=== PATIENT | female | born 1980 | race Caucasian/White ===

== ENCOUNTER 2016-05-13 06:56 | Inpatient (IN) | payer BC ==
[2016-05-13] VITALS (68 sets, daily range): BP systolic 82–132; BP diastolic 47–78
[~2016-05-13] VITALS: Ht 167.6 cm; Wt 106.6 kg
--- OUTSIDE RECORDS SUMMARY | 2016-05-13 07:04 | XMS REPORT | Continuity of Care Document ---
Author Author [facility] Organization [facility] Address Unknown Phone Unavailable Allergies Active Description Code Type Severity Reaction Onset Reported/Identified Relationship to Patient Clinical Status Yes amoxicillin trihydrate [id number] Drug Allergy Unknown STOMACH UPSET 08/22/2011 Yes naproxen sodium [id number] Drug Allergy Unknown STOMACH UPSET 08/22/2011 Yes potassium clavulanate [id number] Drug Allergy Unknown STOMACH UPSET 08/22/2011 Medications Problems Date Dx Coded Attending Type Code Diagnosis Diagnosed By 08/26/2011 Ot 616.2 02/18/2014 Ot 285.9 02/18/2014 Ot 616.3 02/18/2014 Ot V72.63 02/18/2014 Ot V74.8 02/19/2014 ARIES JARA MD Ot 729.5 03/17/2014 ARIES JARA MD Ot 729.5 03/17/2014 ARIES JARA MD Ot 719.47 06/03/2014 Ot V76.12 06/05/2014 Ot V76.12 10/15/2014 ARIES JARA MD Ot 722.4 10/15/2014 ARIES JARA MD Ot 724.1 06/17/2015 Ot M25.561 07/01/2015 Ot M25.561 PAIN IN RIGHT KNEE 07/09/2015 CAITLIN MARIN DO Ot M25.561 PAIN IN RIGHT KNEE 07/22/2015 CAITLIN MARIN DO Ot M25.561 PAIN IN RIGHT KNEE Procedures Results Encounters ACCT No. Visit Date/Time Discharge Status Pt. Type Provider Facility Loc./Unit Complaint [id number] 10/02/2014 11:31:00 2014 23:59:59 CLS Outpatient ARIES JARA MD [facility] RAD [id number] 02/21/2014 12:47:00 2013 23:59:59 CLS Outpatient ARIES JARA MD [facility] RAD [id number] 02/18/2014 08:54:00 2013 23:59:59 CLS Outpatient ARIES JARA MD [facility] RAD [id number] 07/08/2015 07:34:00 ACT Outpatient CAITLIN MARIN DO [facility] RAD [id number] 06/15/2015 09:53:00 Document Registration [id number] 05/19/2014 14:36:00 Document Registration [id number] 08/26/2011 05:34:00 Document Registration [id number] 08/22/2011 08:56:00 Document Registration
[2016-05-13] MEDS ORDERED: OXYTOCIN/NORMAL SALINE 500 ML IV SCH ×2 (07:19→07:29)
[2016-05-13] MEDS ORDERED: LIDOCAINE/EPI 1%-1:200,000 (XYLOCAINE) 30 ML VIAL INJ ONE (07:30)
--- NOTE | 2016-05-13 07:31 | OB Bishop Score ---
Archer Score 8 PATO EPPERSON MD May 13, 2016 7:31 am
--- NOTE | 2016-05-13 07:34 | History & Physical ---
History and Physical this patient is a 35-year-old G1 white female with an EDC of 2016 admitted now at 39-3/7 weeks gestation for labor induction. Her has been uncomplicated. She had a GBS culture on April 12, 2016 that was negative. Patient denies rupture membranes or bleeding. Patient does feel baby moving. She indicates occasional contractions allergies are none Medications are vitamins and 81 mg aspirin a day and Pepcid and diclegis just when necessary Past medical history, past surgical history, history, social history, and obstetric history are per the antepartum record HEENT exam is normal Neck is supple no lymphadenopathy no thyromegaly Abdomen is gravid soft nontender nondistended Extremities show clubbing cyanosis. There is no Homans sign. There is some pretibial pitting edema that is normal. Pelvic exam is pending Assessment and plan 39 3/7 weeks gestation in patient that has had occasional mild elevations of her blood pressure. Been no specific indication preeclampsia. Patient is admitted now for induction of labor electively. anticipation is for vaginal delivery. 39-3/7 weeks induction of labor Allergies and Home Medications Allergies Coded Allergies: amoxicillin trihydrate (Unverified Allergy, STOMACH UPSET, 08/22/11) naproxen sodium (Unverified Allergy, STOMACH UPSET, 08/22/11) potassium clavulanate (Unverified Allergy, STOMACH UPSET, 08/22/11) PATO EPPERSON MD May 13, 2016 7:34 am
[2016-05-13] MEDS: D5 LR IV SOLUTION 1,000 ML IV SCH ×2 (07:49→14:10)
[2016-05-13 08:18] LABS: BASOPHILS % (AUTO) 0 % (0-10); BILIRUBIN,URINE NEGATIVE (NEGATIVE); EOSINOPHILS # (AUTO) 0.1 10^3/uL (0.0-0.3); EOSINOPHILS % (AUTO) 1 % (0-10); KETONES,URINE NEGATIVE (NEGATIVE); LEUKOCYTE ESTERASE ,URINE 2+ (NEGATIVE); LYMPHOCYTES # (AUTO) 2.4 X 10^3 (1.0-4.0); LYMPHOCYTES % (AUTO) 21 % (12-44); MEAN CORPUSCULAR HEMOGLOBIN 32 PG (25-34); MEAN CORPUSCULAR HGB CONC 35 G/DL (32-36); MEAN CORPUSCULAR VOLUME 91 FL (80-99); MEAN PLATELET VOLUME 11.6 FL (7.4-10.4); MONOCYTES # (AUTO) 0.6 X 10^3 (0.0-1.0); MONOCYTES % (AUTO) 5 % (0-12); NEUTROPHILS # (AUTO) 8.4 X 10^3 (1.8-7.8); NEUTROPHILS % (AUTO) 72 % (42-75); NITRITE,URINE NEGATIVE (NEGATIVE); PH,URINE 6 (5-9); PLATELET COUNT 255 10^3/uL (130-400); PROTEIN,URINE NEGATIVE (NEGATIVE); RED BLOOD COUNT 4.16 10^6/uL (4.35-5.85); RED CELL DISTRIBUTION WIDTH 14.3 % (10.0-14.5); UROBILINOGEN,URINE NORMAL (NORMAL); WHITE BLOOD COUNT 11.6 10^3/uL (4.3-11.0)
[2016-05-13 08:28] LABS: SQUAMOUS EPITHELIAL CELL,UR 25-50 /HPF
[2016-05-13] MEDS ORDERED: LACTATED RINGERS 1,000 ML IV ONE ×3 (11:44→12:59)
[2016-05-13] MEDS ORDERED: fentaNYL INJECTION 100 MCG/2 ML AMP ONE ×3 (12:12→20:58)
[2016-05-13] MEDS ORDERED: SUFENTA 0.6MCG/ML BUPIVA 0.125 100 ML ONE (12:12)
[2016-05-13] MEDS ORDERED: BUPIVACAINE 0.25% 30 ML (SENSORCAINE) VIAL ONE ×2 (12:25→20:58)
[2016-05-13] MEDS ORDERED: fentaNYL INJECTION 100 MCG/2 ML AMP INJ ONE (13:00)
[2016-05-13] MEDS ORDERED: NALOXONE 0.4 MG/ML 1 ML (NARCAN) VIAL IV PRN (13:00)
[2016-05-13] MEDS ORDERED: EPIDURAL (SUFENTA 0.6MCG/ML BUPIVA 0.125%) 100 ML BAG EPI PRN (13:00)
[2016-05-13] MEDS ORDERED: BUPIVACAINE 0.25% 30 ML (SENSORCAINE) VIAL INJ ONE (13:00)
[2016-05-13] MEDS ORDERED: ONDANSETRON 4 MG/2 ML (SDV) Z0FRAN IV PRN (13:00)
[2016-05-13] MEDS ORDERED: CATHETER FLUSH 10 ML SYR IV SCH (14:00)
[2016-05-13] MEDS ORDERED: metroNIDAZOLE 500MG/100ML IVPB 100 ML IV ONE (19:45)
[2016-05-13] MEDS ORDERED: ceFAZolin INJECTION 2,000 MG in NS (IVPB) 50 ML IV ONE (19:45)
[2016-05-13] MEDS ORDERED: D5 LR IV SOLUTION 1,000 ML IV ONE (19:54)
--- NOTE | 2016-05-13 19:55 | Progress Note-Standard ---
Standard Progress Note Progress Notes/Assess & Plan Progress/Assessment & Plan patient complains of some pain on the pubic symphysis. She indicates that she is tired of labor. I was called to see the patient and she has not changed her cervix for the last 3-1/2-4 hours. Currently she is to about 4 to 4.5 cm dilated. Cervix is thinned out probably 6 or 70 percent. The presenting part is the vertex at about a -2 station.there is middle ear no descent all day. The cervix is quite flexible and the presenting part is not applied to the cervix. Of concern is that the urine is turned ron-red over the last hour or so. It is clear that the the presenting part cannot descend into the pelvis due to CPD. I have explained the situation with the patient and the discussed proceeding with with which she agreed. Vital Signs Date Time Temp Pulse Resp B/P Pulse Ox O2 Delivery O2 Flow Rate FiO2 05/13/16 18:50 75 18 120/73 100 Room Air 05/13/16 18:35 75 18 116/72 100 Room Air 05/13/16 18:20 74 18 110/68 100 Room Air 05/13/16 18:05 80 18 109/69 100 Room Air 05/13/16 17:50 76 18 107/63 100 Room Air 05/13/16 17:35 86 18 100 Room Air 05/13/16 17:20 116 18 106/62 100 Room Air 05/13/16 17:05 85 18 111/65 100 Room Air 05/13/16 16:50 78 18 110/63 100 Room Air 05/13/16 16:35 74 18 111/66 100 Room Air 05/13/16 16:20 75 18 111/63 100 Room Air 05/13/16 16:05 84 20 110/62 100 Room Air 05/13/16 15:50 96.7 84 20 106/66 100 Room Air 05/13/16 15:35 84 20 106/66 100 Room Air 05/13/16 15:20 112 20 120/69 95 Room Air 05/13/16 15:05 81 20 118/69 100 Room Air 05/13/16 14:50 72 20 121/70 100 Room Air 05/13/16 14:35 94 20 115/67 100 Room Air 05/13/16 14:20 81 20 117/67 99 Room Air 05/13/16 14:05 110 20 112/63 100 Room Air 05/13/16 13:50 74 18 125/64 99 Room Air 05/13/16 13:45 68 18 121/65 99 Room Air 05/13/16 13:40 102 18 100/62 100 Room Air 05/13/16 13:35 73 18 124/71 100 Room Air 05/13/16 13:30 102 18 100/62 100 Room Air 05/13/16 13:25 98 18 108/63 100 Room Air 05/13/16 13:20 84 18 110/67 100 Room Air 05/13/16 13:15 78 18 126/68 100 Room Air 05/13/16 13:10 80 18 130/70 100 Room Air 05/13/16 13:06 69 132/64 Room Air 05/13/16 13:05 95 18 106/56 100 Room Air 05/13/16 13:03 111 18 82/47 100 Room Air 05/13/16 13:00 112 18 106/59 100 Room Air 05/13/16 12:50 86 18 120/75 100 Room Air 05/13/16 12:45 77 18 124/70 100 Room Air 05/13/16 12:40 75 18 117/64 100 Room Air 05/13/16 12:35 78 18 109/65 100 Room Air 05/13/16 12:30 71 18 115/63 100 Room Air 05/13/16 12:20 70 18 124/66 Room Air 05/13/16 12:05 70 18 117/72 Room Air 05/13/16 11:55 67 18 112/72 Room Air 05/13/16 11:40 96.2 66 18 115/76 Room Air 05/13/16 11:25 64 18 111/73 Room Air 05/13/16 11:10 65 18 128/72 Room Air 05/13/16 10:55 76 18 117/77 Room Air 05/13/16 10:40 66 18 116/71 Room Air 05/13/16 10:25 63 18 119/68 Room Air 05/13/16 10:10 67 18 119/68 Room Air 05/13/16 09:55 64 18 129/69 Room Air 05/13/16 09:40 67 18 108/58 Room Air 05/13/16 09:25 65 18 126/73 Room Air 05/13/16 09:05 60 18 126/73 Room Air 05/13/16 08:50 73 18 108/67 Room Air 05/13/16 08:35 76 18 121/62 Room Air 05/13/16 08:20 76 18 121/62 Room Air 05/13/16 08:05 78 18 119/69 Room Air 05/13/16 07:50 81 18 127/71 Room Air 05/13/16 07:45 95.7 74 18 124/75 Room Air Vital signs are stable. Patient afebrile. The heart rate monitor shows occasional variable D cells.. Contractions have been every 1-3 minutes and then start spacing out as Pitocin has been turned off in preparation for a . Abdomen is benign. Pelvic exam is as noted above. Assessment and plan term with failed progress in labor likely due to CPD possibly also due to OP position that will be assessed with delivery. We are waiting the surgery crew that is involved in an emergent case for a nosebleed. This will allow patient to rest somewhat with the Pitocin turned off before proceeding with the . PATO EPPERSON MD May 13, 2016 7:55 pm
[2016-05-13] MEDS ORDERED: TETANUS,DIPTH,PERTUSS P/F (BOOSTRIX) 0.5 ML VIAL IM ONE (20:00)
[2016-05-13] MEDS ORDERED: PROMETHAZINE INJ 25 MG/ML (PHENERGAN) AMP IM PRN (20:00)
[2016-05-13] MEDS ORDERED: MEASLES,MUMPS,RUBELLA 1 EA INJ SC ONE (20:00)
[2016-05-13] MEDS ORDERED: MEPERIDINE (DEMEROL) INJ 100 MG/ML IM PRN (20:00)
[2016-05-13] MEDS ORDERED: CITRIC ACID/SOB CIT (BICITRA) 30 ML UDC ONE (20:07)
[2016-05-13] MEDS ORDERED: METOCLOPRAMIDE INJ 10 MG/2 ML (REGLAN) ONE (20:07)
[2016-05-13] MEDS ORDERED: ceFAZolin 1,000 MG (ANCEF) VIAL ONE (20:07)
[2016-05-13] MEDS ORDERED: FAMOTIDINE 20MG/2ML IV (PEPCID) ONE (20:08)
[2016-05-13] MEDS ORDERED: LIDOCAINE PF 2% 10 ML (XYLOCAINE) AMP ONE (20:58)
[2016-05-13] MEDS ORDERED: OXYTOCIN/NORMAL SALINE 1,000 ML IV ONE (21:56)
[2016-05-13] MEDS: OXYTOCIN/NORMAL SALINE 500 ML IV SCH ×2 (22:27→23:46)
[2016-05-14 00:53] VITALS: BP 92/53
[2016-05-14] MEDS: KETOROLAC 30 MG/ML VIAL IVP PRN ×2 (01:26→08:44)
[2016-05-14] MEDS: DOCUSATE SODIUM 100 MG (COLACE) CAP PO SCH ×3 (01:29→21:02)
[2016-05-14 04:11] VITALS: BP 98/57
[2016-05-14 08:50] VITALS: BP 108/69
--- NOTE | 2016-05-14 08:55 | Progress Note-Standard ---
Standard Progress Note Progress Notes/Assess & Plan Progress/Assessment & Plan patient complains of some pain on the pubic symphysis. She indicates that she is tired of labor. I was called to see the patient and she has not changed her cervix for the last 3-1/2-4 hours. Currently she is to about 4 to 4.5 cm dilated. Cervix is thinned out probably 6 or 70 percent. The presenting part is the vertex at about a -2 station.there is middle ear no descent all day. The cervix is quite flexible and the presenting part is not applied to the cervix. Of concern is that the urine is turned ron-red over the last hour or so. It is clear that the the presenting part cannot descend into the pelvis due to CPD. I have explained the situation with the patient and the discussed proceeding with with which she agreed. Vital Signs Date Time Temp Pulse Resp B/P Pulse Ox O2 Delivery O2 Flow Rate FiO2 05/13/16 18:50 75 18 120/73 100 Room Air 05/13/16 18:35 75 18 116/72 100 Room Air 05/13/16 18:20 74 18 110/68 100 Room Air 05/13/16 18:05 80 18 109/69 100 Room Air 05/13/16 17:50 76 18 107/63 100 Room Air 05/13/16 17:35 86 18 100 Room Air 05/13/16 17:20 116 18 106/62 100 Room Air 05/13/16 17:05 85 18 111/65 100 Room Air 05/13/16 16:50 78 18 110/63 100 Room Air 05/13/16 16:35 74 18 111/66 100 Room Air 05/13/16 16:20 75 18 111/63 100 Room Air 05/13/16 16:05 84 20 110/62 100 Room Air 05/13/16 15:50 96.7 84 20 106/66 100 Room Air 05/13/16 15:35 84 20 106/66 100 Room Air 05/13/16 15:20 112 20 120/69 95 Room Air 05/13/16 15:05 81 20 118/69 100 Room Air 05/13/16 14:50 72 20 121/70 100 Room Air 05/13/16 14:35 94 20 115/67 100 Room Air 05/13/16 14:20 81 20 117/67 99 Room Air 05/13/16 14:05 110 20 112/63 100 Room Air 05/13/16 13:50 74 18 125/64 99 Room Air 05/13/16 13:45 68 18 121/65 99 Room Air 05/13/16 13:40 102 18 100/62 100 Room Air 05/13/16 13:35 73 18 124/71 100 Room Air 05/13/16 13:30 102 18 100/62 100 Room Air 05/13/16 13:25 98 18 108/63 100 Room Air 05/13/16 13:20 84 18 110/67 100 Room Air 05/13/16 13:15 78 18 126/68 100 Room Air 05/13/16 13:10 80 18 130/70 100 Room Air 05/13/16 13:06 69 132/64 Room Air 05/13/16 13:05 95 18 106/56 100 Room Air 05/13/16 13:03 111 18 82/47 100 Room Air 05/13/16 13:00 112 18 106/59 100 Room Air 05/13/16 12:50 86 18 120/75 100 Room Air 05/13/16 12:45 77 18 124/70 100 Room Air 05/13/16 12:40 75 18 117/64 100 Room Air 05/13/16 12:35 78 18 109/65 100 Room Air 05/13/16 12:30 71 18 115/63 100 Room Air 05/13/16 12:20 70 18 124/66 Room Air 05/13/16 12:05 70 18 117/72 Room Air 05/13/16 11:55 67 18 112/72 Room Air 05/13/16 11:40 96.2 66 18 115/76 Room Air 05/13/16 11:25 64 18 111/73 Room Air 05/13/16 11:10 65 18 128/72 Room Air 05/13/16 10:55 76 18 117/77 Room Air 05/13/16 10:40 66 18 116/71 Room Air 05/13/16 10:25 63 18 119/68 Room Air 05/13/16 10:10 67 18 119/68 Room Air 05/13/16 09:55 64 18 129/69 Room Air 05/13/16 09:40 67 18 108/58 Room Air 05/13/16 09:25 65 18 126/73 Room Air 05/13/16 09:05 60 18 126/73 Room Air 05/13/16 08:50 73 18 108/67 Room Air 05/13/16 08:35 76 18 121/62 Room Air 05/13/16 08:20 76 18 121/62 Room Air 05/13/16 08:05 78 18 119/69 Room Air 05/13/16 07:50 81 18 127/71 Room Air 05/13/16 07:45 95.7 74 18 124/75 Room Air Vital signs are stable. Patient afebrile. The heart rate monitor shows occasional variable D cells.. Contractions have been every 1-3 minutes and then start spacing out as Pitocin has been turned off in preparation for a . Abdomen is benign. Pelvic exam is as noted above. Assessment and plan term with failed progress in labor likely due to CPD possibly also due to OP position that will be assessed with delivery. We are waiting the surgery crew that is involved in an emergent case for a nosebleed. This will allow patient to rest somewhat with the Pitocin turned off before proceeding with the . May 14, 2016 Patient is without complaint. She is ambulating, voiding, tolerating fairly well, denies chest pain, denies shortness breath, denies nausea vomiting, denies headache, has good pain control. Vital Signs Date Time Temp Pulse Resp B/P Pulse Ox O2 Delivery O2 Flow Rate FiO2 05/14/16 04:11 98.0 85 18 98/57 97 Room Air 05/14/16 00:53 98.2 69 18 92/53 100 Room Air 05/13/16 21:10 18 124/78 Room Air 05/13/16 21:08 84 18 117/71 Room Air 05/13/16 21:05 112 18 112/78 Room Air 05/13/16 20:50 96.0 107 18 112/75 Room Air 05/13/16 20:35 78 18 119/67 Room Air 05/13/16 20:20 86 18 118/73 Room Air 05/13/16 20:05 94 18 131/66 Room Air 05/13/16 19:50 89 18 126/68 Room Air 05/13/16 19:35 124 18 113/63 100 Room Air 05/13/16 19:20 83 18 122/68 100 Room Air 05/13/16 19:05 78 18 125/76 100 Room Air 05/13/16 18:50 75 18 120/73 100 Room Air 05/13/16 18:35 75 18 116/72 100 Room Air 05/13/16 18:20 74 18 110/68 100 Room Air 05/13/16 18:05 80 18 109/69 100 Room Air 05/13/16 17:50 76 18 107/63 100 Room Air 05/13/16 17:35 86 18 100 Room Air 05/13/16 17:20 116 18 106/62 100 Room Air 05/13/16 17:05 85 18 111/65 100 Room Air 05/13/16 16:50 78 18 110/63 100 Room Air 05/13/16 16:35 74 18 111/66 100 Room Air 05/13/16 16:20 75 18 111/63 100 Room Air 05/13/16 16:05 84 20 110/62 100 Room Air 05/13/16 15:50 96.7 84 20 106/66 100 Room Air 05/13/16 15:35 84 20 106/66 100 Room Air 05/13/16 15:20 112 20 120/69 95 Room Air 05/13/16 15:05 81 20 118/69 100 Room Air 05/13/16 14:50 72 20 121/70 100 Room Air 05/13/16 14:35 94 20 115/67 100 Room Air 05/13/16 14:20 81 20 117/67 99 Room Air 05/13/16 14:05 110 20 112/63 100 Room Air 05/13/16 13:50 74 18 125/64 99 Room Air 05/13/16 13:45 68 18 121/65 99 Room Air 05/13/16 13:40 102 18 100/62 100 Room Air 05/13/16 13:35 73 18 124/71 100 Room Air 05/13/16 13:30 102 18 100/62 100 Room Air 05/13/16 13:25 98 18 108/63 100 Room Air 05/13/16 13:20 84 18 110/67 100 Room Air 05/13/16 13:15 78 18 126/68 100 Room Air 05/13/16 13:10 80 18 130/70 100 Room Air 05/13/16 13:06 69 132/64 Room Air 05/13/16 13:05 95 18 106/56 100 Room Air 05/13/16 13:03 111 18 82/47 100 Room Air 05/13/16 13:00 112 18 106/59 100 Room Air 05/13/16 12:50 86 18 120/75 100 Room Air 05/13/16 12:45 77 18 124/70 100 Room Air 05/13/16 12:40 75 18 117/64 100 Room Air 05/13/16 12:35 78 18 109/65 100 Room Air 05/13/16 12:30 71 18 115/63 100 Room Air 05/13/16 12:20 70 18 124/66 Room Air 05/13/16 12:05 70 18 117/72 Room Air 05/13/16 11:55 67 18 112/72 Room Air 05/13/16 11:40 96.2 66 18 115/76 Room Air 05/13/16 11:25 64 18 111/73 Room Air 05/13/16 11:10 65 18 128/72 Room Air 05/13/16 10:55 76 18 117/77 Room Air 05/13/16 10:40 66 18 116/71 Room Air 05/13/16 10:25 63 18 119/68 Room Air 05/13/16 10:10 67 18 119/68 Room Air 05/13/16 09:55 64 18 129/69 Room Air 05/13/16 09:40 67 18 108/58 Room Air 05/13/16 09:25 65 18 126/73 Room Air 05/13/16 09:05 60 18 126/73 Room Air I & O 05/14/16 07:00 Intake Total 4150 ml Output Total 2100 ml Balance 2050 ml Vital signs are stable. Patient afebrile. Fundus is firm below the umbilicus and nontender. The incision is clean dry and intact. Streaming show no clubbing cyanosis. There is no Homans sign. There is a significant pretibial pitting edema that is within normal limits. Assessment and plan postoperative day number 1 status post primary doing well. Plan is routine convalescence care today and consider for discharge home tomorrow. PATO EPPERSON MD May 14, 2016 8:55 am
[2016-05-14] MEDS ORDERED: OXYC-465 PO (08:56)
[2016-05-14] MEDS ORDERED: IBUP-1780 PO (08:56)
[2016-05-14] MEDS ORDERED: DOCU100C37 PO (08:56)
--- NOTE | 2016-05-14 08:58 | Discharge Instructions ---
Discharge Instructions Discharge Medications New, Converted or Re-Newed RX: RX on Chart Patient Instructions Patient Instructions: as directed Return to The Hospital For: as directed Activity & Diet Discharge Diet: No Restrictions Activity as Tolerated: No Orders-Post D/C & Referrals Follow Up Appt: RTC Saturday, May 21, 2016 at 930 a.m. for incision check. Call to make follow up appt. for patient in 4 weeks. Wound Care: Remove lance, apply benzoin and steri strips. Activity Per routine post instructions. Diet as tolerated Patient may shower or tub bathe as desired. Continue home meds PATO EPPERSON MD May 14, 2016 8:58 am
--- NOTE | 2016-05-14 13:08 | Anesthesia-Regional Post-Op ---
Regional Significant Intra-Op Events Notes Epidural cath removed blue tip intact Patient Condition Mental Status: Alert, Oriented x3 Circulation: Same as Pre-Op Headache: Absent Sensation: Full Recovery Motor Block: Absent Post Op Complications Complications None Follow Up Care/Instructions Patient Instructions None needed. Anesthesia/Patient Condition Patient is doing well, no complaints, stable vital signs, no apparent adverse anesthesia problems. No complications reported per nursing. D/C home per [facility] Criteria: No JEFFREY HASSAN CRNA May 14, 2016 13:08
[2016-05-14] MEDS ORDERED: IBUPROFEN 800 MG (MOTRIN) TAB PO ONE (14:54)
[2016-05-14 15:00] VITALS: BP 126/72
[2016-05-14] MEDS: IBUPROFEN 800 MG (MOTRIN) TAB PO SCH ×2 (15:00→21:02)
[2016-05-14] MEDS: oxyCODONE/APAP 10/325MG (PERCOCET 10) TABLET PO PRN ×2 (15:20→21:33)
[2016-05-14 20:37] VITALS: BP 147/76
--- NOTE | 2016-05-14 23:53 | OPERATIVE REPORT ---
PROCEDURE PHYSICIAN: PATO EPPERSON DATE OF PROCEDURE: 05/13/2016 PREOPERATIVE DIAGNOSIS: Term in labor with failure to progress/CPD. POSTOPERATIVE DIAGNOSIS: 1. Term in labor with failure to progress/CPD. 2. Persistent OP. OPERATIVE PROCEDURE: Primary low transverse delivery of a viable female with Apgars of 9 and 9 at 1 to 5 minutes respectfully, weight 7 pounds 13 ounces. time 2130. Cord blood pH was 7.31. OPERATIVE DESCRIPTION: With the patient in the supine position, under satisfactory epidural anesthesia, she was prepped and draped usual fashion for abdominal surgery. Gil catheter had been placed in the urinary bladder during labor that was left to dependent drainage. A Pfannenstiel incision was made through skin with scalpel. The patient's abdomen entered in the usual manner. Bladder retractor placed into position and clean scalpel used to make a 4 cm hysterotomy incision transversely across lower uterine segment that was extended by blunt dissection as well. A vigorous viable female infant was delivered via the uterine incision. The had Apgars of 9 and 9 at 1 and 5 minutes respectfully. Weight was 7 pounds, 13 ounces. time was 2130. The was bulb suctioned on delivery of the head and again on completion of the delivery. The umbilical cord was doubly clamped and cut. Cord bloods were obtained including an arterial cord pH that had a value of 7.31. The infant was bulb suctioned on delivery of the head and again on completion of delivery. The cord, after being doubly clamped and cut, the was passed to the pediatric nurse in attendance for delivery. That was Mayela Carbone. The placenta delivered spontaneously Quintero. It was normal with a 3 vessel cord. The uterus was exteriorized, interior wiped clean with a wet laparotomy sponge. Uterine incision was then closed with running locked suture of 2-0 Vicryl. The uterus was quite atonic. A modified B-Belle suture was placed using 2 number 1 Chromic sutures. This compressed the uterus nicely and controlled the blood loss. The uterus was now returned abdominal cavity. All blood clot and debris removed from the abdominal cavity. With sponge and needle counts correct and hemostasis assured, the anterior parietal peritoneum was closed running suture of 2-0 Vicryl. The rectus muscles were closed with that suture as well. The rectus fascia was closed with 2 sutures of 2-0 Vicryl. Subcutaneous tissue was closed with an additional suture of 2-0 Vicryl and the skin was stapled. Sponge, needle counts were correct on completion of delivery. Estimated blood loss was around 300 mL. The patient tolerated the procedure well and was transferred to recovery room in stable condition. The had been taken stable to the full term nursery under the care of nurse Carbone. Job ID: [id number] Dictated Date: 05/13/2016 21:54:01 Gate Operator Date: 05/14/2016 23:47:39 / fernanda
[2016-05-15] VITALS: BP 130/80
[2016-05-15] MEDS: IBUPROFEN 800 MG (MOTRIN) TAB PO SCH ×2 (03:22→09:25)
[2016-05-15 04:20] VITALS: BP 117/71
[2016-05-15 09:25] VITALS: BP 123/83
[2016-05-15] MEDS: DOCUSATE SODIUM 100 MG (COLACE) CAP PO SCH (09:25)
--- NOTE | 2016-05-15 09:26 | Progress Note-Standard ---
Standard Progress Note Progress Notes/Assess & Plan Progress/Assessment & Plan patient complains of some pain on the pubic symphysis. She indicates that she is tired of labor. I was called to see the patient and she has not changed her cervix for the last 3-1/2-4 hours. Currently she is to about 4 to 4.5 cm dilated. Cervix is thinned out probably 6 or 70 percent. The presenting part is the vertex at about a -2 station.there is middle ear no descent all day. The cervix is quite flexible and the presenting part is not applied to the cervix. Of concern is that the urine is turned ron-red over the last hour or so. It is clear that the the presenting part cannot descend into the pelvis due to CPD. I have explained the situation with the patient and the discussed proceeding with with which she agreed. Vital Signs Date Time Temp Pulse Resp B/P Pulse Ox O2 Delivery O2 Flow Rate FiO2 05/13/16 18:50 75 18 120/73 100 Room Air 05/13/16 18:35 75 18 116/72 100 Room Air 05/13/16 18:20 74 18 110/68 100 Room Air 05/13/16 18:05 80 18 109/69 100 Room Air 05/13/16 17:50 76 18 107/63 100 Room Air 05/13/16 17:35 86 18 100 Room Air 05/13/16 17:20 116 18 106/62 100 Room Air 05/13/16 17:05 85 18 111/65 100 Room Air 05/13/16 16:50 78 18 110/63 100 Room Air 05/13/16 16:35 74 18 111/66 100 Room Air 05/13/16 16:20 75 18 111/63 100 Room Air 05/13/16 16:05 84 20 110/62 100 Room Air 05/13/16 15:50 96.7 84 20 106/66 100 Room Air 05/13/16 15:35 84 20 106/66 100 Room Air 05/13/16 15:20 112 20 120/69 95 Room Air 05/13/16 15:05 81 20 118/69 100 Room Air 05/13/16 14:50 72 20 121/70 100 Room Air 05/13/16 14:35 94 20 115/67 100 Room Air 05/13/16 14:20 81 20 117/67 99 Room Air 05/13/16 14:05 110 20 112/63 100 Room Air 05/13/16 13:50 74 18 125/64 99 Room Air 05/13/16 13:45 68 18 121/65 99 Room Air 05/13/16 13:40 102 18 100/62 100 Room Air 05/13/16 13:35 73 18 124/71 100 Room Air 05/13/16 13:30 102 18 100/62 100 Room Air 05/13/16 13:25 98 18 108/63 100 Room Air 05/13/16 13:20 84 18 110/67 100 Room Air 05/13/16 13:15 78 18 126/68 100 Room Air 05/13/16 13:10 80 18 130/70 100 Room Air 05/13/16 13:06 69 132/64 Room Air 05/13/16 13:05 95 18 106/56 100 Room Air 05/13/16 13:03 111 18 82/47 100 Room Air 05/13/16 13:00 112 18 106/59 100 Room Air 05/13/16 12:50 86 18 120/75 100 Room Air 05/13/16 12:45 77 18 124/70 100 Room Air 05/13/16 12:40 75 18 117/64 100 Room Air 05/13/16 12:35 78 18 109/65 100 Room Air 05/13/16 12:30 71 18 115/63 100 Room Air 05/13/16 12:20 70 18 124/66 Room Air 05/13/16 12:05 70 18 117/72 Room Air 05/13/16 11:55 67 18 112/72 Room Air 05/13/16 11:40 96.2 66 18 115/76 Room Air 05/13/16 11:25 64 18 111/73 Room Air 05/13/16 11:10 65 18 128/72 Room Air 05/13/16 10:55 76 18 117/77 Room Air 05/13/16 10:40 66 18 116/71 Room Air 05/13/16 10:25 63 18 119/68 Room Air 05/13/16 10:10 67 18 119/68 Room Air 05/13/16 09:55 64 18 129/69 Room Air 05/13/16 09:40 67 18 108/58 Room Air 05/13/16 09:25 65 18 126/73 Room Air 05/13/16 09:05 60 18 126/73 Room Air 05/13/16 08:50 73 18 108/67 Room Air 05/13/16 08:35 76 18 121/62 Room Air 05/13/16 08:20 76 18 121/62 Room Air 05/13/16 08:05 78 18 119/69 Room Air 05/13/16 07:50 81 18 127/71 Room Air 05/13/16 07:45 95.7 74 18 124/75 Room Air Vital signs are stable. Patient afebrile. The heart rate monitor shows occasional variable D cells.. Contractions have been every 1-3 minutes and then start spacing out as Pitocin has been turned off in preparation for a . Abdomen is benign. Pelvic exam is as noted above. Assessment and plan term with failed progress in labor likely due to CPD possibly also due to OP position that will be assessed with delivery. We are waiting the surgery crew that is involved in an emergent case for a nosebleed. This will allow patient to rest somewhat with the Pitocin turned off before proceeding with the . May 14, 2016 Patient is without complaint. She is ambulating, voiding, tolerating fairly well, denies chest pain, denies shortness breath, denies nausea vomiting, denies headache, has good pain control. Vital Signs Date Time Temp Pulse Resp B/P Pulse Ox O2 Delivery O2 Flow Rate FiO2 05/14/16 04:11 98.0 85 18 98/57 97 Room Air 05/14/16 00:53 98.2 69 18 92/53 100 Room Air 05/13/16 21:10 18 124/78 Room Air 05/13/16 21:08 84 18 117/71 Room Air 05/13/16 21:05 112 18 112/78 Room Air 05/13/16 20:50 96.0 107 18 112/75 Room Air 05/13/16 20:35 78 18 119/67 Room Air 05/13/16 20:20 86 18 118/73 Room Air 05/13/16 20:05 94 18 131/66 Room Air 05/13/16 19:50 89 18 126/68 Room Air 05/13/16 19:35 124 18 113/63 100 Room Air 05/13/16 19:20 83 18 122/68 100 Room Air 05/13/16 19:05 78 18 125/76 100 Room Air 05/13/16 18:50 75 18 120/73 100 Room Air 05/13/16 18:35 75 18 116/72 100 Room Air 05/13/16 18:20 74 18 110/68 100 Room Air 05/13/16 18:05 80 18 109/69 100 Room Air 05/13/16 17:50 76 18 107/63 100 Room Air 05/13/16 17:35 86 18 100 Room Air 05/13/16 17:20 116 18 106/62 100 Room Air 05/13/16 17:05 85 18 111/65 100 Room Air 05/13/16 16:50 78 18 110/63 100 Room Air 05/13/16 16:35 74 18 111/66 100 Room Air 05/13/16 16:20 75 18 111/63 100 Room Air 05/13/16 16:05 84 20 110/62 100 Room Air 05/13/16 15:50 96.7 84 20 106/66 100 Room Air 05/13/16 15:35 84 20 106/66 100 Room Air 05/13/16 15:20 112 20 120/69 95 Room Air 05/13/16 15:05 81 20 118/69 100 Room Air 05/13/16 14:50 72 20 121/70 100 Room Air 05/13/16 14:35 94 20 115/67 100 Room Air 05/13/16 14:20 81 20 117/67 99 Room Air 05/13/16 14:05 110 20 112/63 100 Room Air 05/13/16 13:50 74 18 125/64 99 Room Air 05/13/16 13:45 68 18 121/65 99 Room Air 05/13/16 13:40 102 18 100/62 100 Room Air 05/13/16 13:35 73 18 124/71 100 Room Air 05/13/16 13:30 102 18 100/62 100 Room Air 05/13/16 13:25 98 18 108/63 100 Room Air 05/13/16 13:20 84 18 110/67 100 Room Air 05/13/16 13:15 78 18 126/68 100 Room Air 05/13/16 13:10 80 18 130/70 100 Room Air 05/13/16 13:06 69 132/64 Room Air 05/13/16 13:05 95 18 106/56 100 Room Air 05/13/16 13:03 111 18 82/47 100 Room Air 05/13/16 13:00 112 18 106/59 100 Room Air 05/13/16 12:50 86 18 120/75 100 Room Air 05/13/16 12:45 77 18 124/70 100 Room Air 05/13/16 12:40 75 18 117/64 100 Room Air 05/13/16 12:35 78 18 109/65 100 Room Air 05/13/16 12:30 71 18 115/63 100 Room Air 05/13/16 12:20 70 18 124/66 Room Air 05/13/16 12:05 70 18 117/72 Room Air 05/13/16 11:55 67 18 112/72 Room Air 05/13/16 11:40 96.2 66 18 115/76 Room Air 05/13/16 11:25 64 18 111/73 Room Air 05/13/16 11:10 65 18 128/72 Room Air 05/13/16 10:55 76 18 117/77 Room Air 05/13/16 10:40 66 18 116/71 Room Air 05/13/16 10:25 63 18 119/68 Room Air 05/13/16 10:10 67 18 119/68 Room Air 05/13/16 09:55 64 18 129/69 Room Air 05/13/16 09:40 67 18 108/58 Room Air 05/13/16 09:25 65 18 126/73 Room Air 05/13/16 09:05 60 18 126/73 Room Air I & O 05/14/16 07:00 Intake Total 4150 ml Output Total 2100 ml Balance 2050 ml Vital signs are stable. Patient afebrile. Fundus is firm below the umbilicus and nontender. The incision is clean dry and intact. Streaming show no clubbing cyanosis. There is no Homans sign. There is a significant pretibial pitting edema that is within normal limits. Assessment and plan postoperative day number 1 status post primary doing well. Plan is routine convalescence care today and consider for discharge home tomorrow. May 15, 2016 This patient is without complaint. She is ambulating, voiding, tolerating by mouth well, has good pain control, is requesting discharge home. Vital Signs Date Time Temp Pulse Resp B/P Pulse Ox O2 Delivery O2 Flow Rate FiO2 05/15/16 04:20 97.4 62 16 117/71 98 Room Air 05/15/16 00:00 97.4 72 16 130/80 99 Room Air 05/14/16 20:37 97.9 80 18 147/76 98 Room Air 05/14/16 15:00 98.7 77 18 126/72 98 Room Air I & O 05/15/16 07:00 Intake Total 2490 ml Output Total 2950 ml Balance -460 ml Vital signs are stable. Patient is afebrile. Fundus is firm below the umbilicus and nontender. Extremities show no clubbing cyanosis. There is no Homans sign. There is notable pretibial pitting edema that is within the range of normal Assessment and plan post operative day number 2 status post primary at 39 3/7 weeks well. Plan is for discharge home with follow-up in clinic Final Diagnosis 39-3/7 weeks' gestation with primary PATO EPPERSON MD May 15, 2016 9:26 am
== END 2016-05-15 11:25 | disposition home or self-care (01) | DRG 766 ==
LOC: LDRP 06:56 → WS 23:20
PROVIDERS: ADMIT Obstetrics & Gynecology; ATTEND Obstetrics & Gynecology
PROC: 3E033GC Introduction of Other Therapeutic Substance into Peripheral Vein, Percutaneous Approach (ICD-10-PCS; 2016-05-13)
PROC: 10D00Z1 Extraction of Products of Conception, Low, Open Approach (ICD-10-PCS; principal; 2016-05-13 21:13)
DX: O64.0XX0 Obstructed labor due to incomplete rotation of fetal head, not applicable or unspecified (principal); O33.9 Maternal care for disproportion, unspecified; O62.2 Other uterine inertia; Z37.0 Single live birth; Z3A.39 39 weeks gestation of pregnancy
CPT/HCPCS: 36415; 81000; 85025; 86850; 86900; 86901; 87088; 88307; 94664

== ENCOUNTER → 2017-02-24 | Outpatient (CLI) | payer BC ==
[~2017-02-24] MED LIST: DOCU100C37 PO; IBUP-1780 PO; OXYC-465 PO
--- NOTE | 2017-02-24 10:09 | Diagnostic Imaging Report ---
EXAMINATION: Bilateral diagnostic mammogram with a Computer Aided Detection (CAD) system. INDICATION: Inferior left breast lump. The patient has had breast reduction surgery. COMPARISON: 05/19/2014. FINDINGS: The breasts are composed of heterogenously dense parenchyma which may decrease mammographic sensitivity. The inferior aspect of the left breast near the area of palpable lump demonstrates thickened nonspecific tissue which could relate to postsurgical scarring. There is an asymmetry along the upper aspect of the right breast which was evaluated with a focal compression view as well as tomography with no definitive underlying lesion. This is probably related to summation artifact of parenchyma. IMPRESSION: The findings in the inferior aspect of the left breast are probably related to postsurgical scarring. In the right breast, an asymmetry in the upper aspect of the right breast was evaluated with focal compression views and demonstrates no definite underlying lesion, likely related to summation artifact of parenchyma. An ultrasound correlation is pending. ACR BI-RADS Category 0: Incomplete. (Needs additional imaging evaluation). Result letter will be mailed to the patient. Note: At least 10% of breast cancer is not imaged by mammography. Dictated by: Dictated on workstation # [id number]
--- NOTE | 2017-02-24 10:28 | Diagnostic Imaging Report ---
EXAMINATION: Left breast ultrasound. INDICATION: Palpable lump in the lower aspect of the left breast. Dense breasts seen on mammography and asymmetry in the upper aspect of the right breast. FINDINGS: The four-quadrants and retroareolar region of the right breast were scanned with no underlying abnormality. In the left breast at the palpable area at 5:30 o'clock position 8 cm from the nipple, there is a hypoechoic irregular lesion that is involving the deep layer of the skin measuring 1 x 0.7 x 2.2 cm. No internal vascularity. This is at the area of surgical scar and is presumably related to postsurgical fibrous tissue with or without seroma elements. The remainder of the left breast demonstrates no other lesion. IMPRESSION: 2.2 cm irregular hypoechoic lesion at the palpable area matching the surgical scar region is seen, likely related to fibrous scar abutting the deep aspect of the skin. Clinical followup is recommended. If there is worsening of symptoms or enlargement of the lump, then reevaluation with imaging would be recommended. ACR BI-RADS Category 2: Benign findings. Dictated by: Dictated on workstation # [id number]
== END ==
LOC: RAD 08:27
PROVIDERS: ATTEND Family Medicine
DX: N63.20 Unspecified lump in the left breast, unspecified quadrant (principal); R92.2 Inconclusive mammogram
CPT/HCPCS: 77066

== ENCOUNTER 2017-03-02 05:39 | Outpatient (CLI) | payer BC ==
[~2017-03-02] VITALS: Ht 167.6 cm; Wt 71.2 kg
[2017-03-02] MEDS ORDERED: TRAZ-28 PO (10:09)
[2017-03-02] MEDS ORDERED: NORG1TAB7 PO (10:09)
[2017-03-03] MEDS ORDERED: HYDR-3812 PO (08:44)
== END 2017-03-02 10:21 ==
LOC: PREOP 05:39
PROVIDERS: ATTEND Surgery
DX: Z01.818 Encounter for other preprocedural examination (principal); N63.20 Unspecified lump in the left breast, unspecified quadrant

== ENCOUNTER 2017-03-03 07:15 | Day surgery (SDC) | payer BC ==
[~2017-03-03] VITALS: Ht 167.6 cm; Wt 71.2 kg
[~2017-03-03 07:15] MED LIST changes: +NORG1TAB7 PO; +TRAZ-28 PO
[2017-03-03] MEDS ORDERED: LACTATED RINGERS 1,000 ML IV PRN (07:49)
[2017-03-03 07:58] VITALS: BP 109/77
[2017-03-03] MEDS ORDERED: ceFAZolin INJECTION 1,000 MG in NS (IVPB) 50 ML IV ONE (08:00)
--- NOTE | 2017-03-03 08:02 | Progress Note-Pre Operative ---
Pre-Operative Progress Note H&P Reviewed The H&P was reviewed, patient examined and no changes noted. Date Seen by Provider: Feb 27, 2017 Time Seen by Provider: 16:45 Date H&P Reviewed: Mar 03, 2017 Time H&P Reviewed: 08:02 Pre-Operative Diagnosis: Painful lump-left breast CARLOS REGALADO MD Mar 03, 2017 8:02 am
[2017-03-03] MEDS ORDERED: ONDANSETRON 4 MG/2 ML (SDV) Z0FRAN IV ONE (08:15)
[2017-03-03] MEDS ORDERED: SCOPOLAMINE 1.5 MG (TRANSDERM-SCOP) PATCH TOP ONE (08:15)
[2017-03-03] MEDS ORDERED: FAMOTIDINE 20MG/2ML IV (PEPCID) IV ONE (08:15)
[2017-03-03] MEDS ORDERED: BUP/EPI 0.5% 1:200,000 (MARCAINE) 10ML VIAL IJ ONE (08:16)
[2017-03-03] MEDS ORDERED: HYDR-3812 PO (08:44)
--- NOTE | 2017-03-03 08:45 | Discharge Inst-Simple/Standard ---
Discharge Inst-Standard Discharge Medications New, Converted or Re-Newed RX: RX on Chart Patient Instructions/Follow Up Plan of Care/Instructions/FU: Dressings off in 48 hours. Follow-up if needed Activity as Tolerated: Yes Discharge Diet: No Restrictions CARLOS REGALADO MD Mar 03, 2017 8:44 am
[2017-03-03] MEDS ORDERED: LIDOCAINE PF 2% 5 ML (XYLOCAINE) VIAL ONE (09:06)
[2017-03-03] MEDS ORDERED: ONDANSETRON 4 MG/2 ML (SDV) Z0FRAN ONE (09:06)
[2017-03-03] MEDS ORDERED: proPOfol 200 MG/20 ML (DIPRIVAN) VIAL IV ONE (09:06)
[2017-03-03] MEDS ORDERED: fentaNYL INJECTION 100 MCG/2 ML AMP ONE (09:06)
[2017-03-03] MEDS ORDERED: DEXAMETHASONE 10 MG/ML (DECADRON) 1 ML VIAL ONE (09:07)
[2017-03-03] MEDS ORDERED: SEVOFLURANE (ULTANE) 15 ML INHAL SOLN ONE ×3 (09:07→10:02)
[2017-03-03] MEDS ORDERED: MIDAZOLAM 2 MG/2 ML (VERSED) VIAL ONE (09:07)
--- NOTE | 2017-03-03 09:51 | Operative Report ---
Operative Report Date of Procedure/Surgery Mar 03, 2017 Surgeon (s) CARLOS REGALADO MD Hydrological Technical Officer (s): N/A Post-Operative Diagnosis Same Procedure Performed Excision of lump/painful scar tissueleft breast Description of Procedure Anesthesia Type: General Estimated blood loss (mL): Minimal Specimen(s) collected/removed Left breast tissue Description of the Procedure Indication for the procedure: This lady presented with a vague and painful lump along the inferior aspect of the left breast, 2 years following breast reduction surgery. Imaging was negative for any sinister lesions. Due to symptoms, it was felt reasonable to excise the area. Informed consent was obtained after reviewing the operative details and highlighting the possibility of persistent symptoms and the risk of additional scar tissue formation. Description of the procedure: She was placed supine on the operative table and general anesthesia induced. Prophylactic antibiotics were administered intravenously, to minimize the risk of wound infection Sequential compression devices were placed around her legs, to minimize the risk of venous thrombosis. Left breast tissue was prepared and draped in the usual sterile manner. An elliptical incision about 5 cm long was made along the inferior aspect of the left breast, incorporating the painful scar and the tissue excised. A small area of hemorrhagic cyst was encountered and incorporated within the specimen. Hemostasis was achieved using cautery and the area irrigated with saline. Incision was then closed using 3-0 Vicryl for the deeper layer and 4-0 Vicryl for skin, in a subcuticular fashion. 0.5 percent Marcaine with epinephrine was infiltrated along the incision and into the operation She tolerated the procedure well, was extubated in the operative room and taken to the recovery room in a stable condition. Findings of the Procedure See op report Allergies and Home Medications Allergies Coded Allergies: naproxen sodium (Unverified Adverse Reaction, Intermediate, STOMACH UPSET , 03/03/17) potassium clavulanate (Unverified Adverse Reaction, Intermediate, STOMACH UPSET, 03/03/17) amoxicillin trihydrate (Unverified Adverse Reaction, Unknown, STOMACH UPSET, 03/03/17) Home Medications Hydrocodone/Acetaminophen 1 Each Tablet, 1-2 TAB PO 4-6HR PRN for PAIN, #20 Ref 0 Prescribed by: CARLOS REGALADO on 03/03/17 0844 Norgestimate-Ethinyl Estradiol 1 Each Tablet, 1 EACH PO DAILY, (Reported) Trazodone HCl 50 Mg Tablet, 25 MG PO HS, (Reported) TAKE 1/2 OF 50MG TAB CARLOS REGALADO MD Mar 03, 2017 9:51 am
[2017-03-03] MEDS ORDERED: ONDANSETRON 4 MG/2 ML (SDV) Z0FRAN IVP PRN (10:15)
[2017-03-03] MEDS ORDERED: morphine INJ 10 MG/ML 1ML (SYR OR VIAL) IVP PRN (10:15)
[2017-03-03] MEDS ORDERED: MEPERIDINE (DEMEROL) INJ 50 MG/ML IVP PRN (10:15)
[2017-03-03] MEDS ORDERED: PROMETHAZINE INJ 25 MG/ML (PHENERGAN) AMP IVP PRN (10:15)
[2017-03-03] MEDS: HYDROmorphone (DILAUDID) 2 MG/ML VIAL IVP PRN ×2 (10:20→10:30)
[2017-03-03 10:50] VITALS: BP_SYST 109; BP_SYST 113; BP_DIAS 77; BP_DIAS 86
[2017-03-03 11:19] VITALS: BP 112/77
[2017-03-03 11:26] VITALS: BP 112/77
== END 2017-03-03 11:26 | disposition still patient (30) ==
LOC: SDC 07:15
PROVIDERS: ATTEND Surgery
DX: L90.5 Scar conditions and fibrosis of skin (principal); N60.02 Solitary cyst of left breast
CPT/HCPCS: 84703; 87081